=== PATIENT | male | born 1960 | race Caucasian/White ===

== ENCOUNTER 2017-09-08 00:46 | Observation (INO) | payer BC, OTHER ==
[~2017-09-08] VITALS: Ht 180.3 cm; Wt 170.2 kg
[2017-09-08] VITALS (13 sets, daily range): BP systolic 118–160; BP diastolic 64–102
[~2017-09-08 00:46] MED LIST: ASPI-1471 PO; CEPH250C37 PO; CHOL10005 PO; FUR40 PO; GLIP-152 PO; HYDR-4309 PO; METF-411 PO; OXY10 PO; OXYC-689 PO; OXYC-865 PO; PER PO; RIV10 PO; [UNRECOGNIZED DRUG - CODE] PO; [UNRECOGNIZED DRUG - REMARK]
[2017-09-08] MEDS ORDERED: fentaNYL CITR 250 MCG/5 ML AMP ONE (07:49)
[2017-09-08] MEDS ORDERED: ONDANSETRON 4 MG/2 ML VIAL ONE (07:50)
[2017-09-08] MEDS ORDERED: SUGAMMADEX SOD 500 MG/5 ML SDV ONE (07:50)
[2017-09-08] MEDS ORDERED: DEXAMETHASONE SOD 4 MG/ML VIAL ONE (07:50)
[2017-09-08] MEDS ORDERED: LIDOCAINE MPF 1% 5 ML VIAL ONE (07:50)
[2017-09-08] MEDS ORDERED: PROPOFOL EMUL(*) 10MG/ML 20 ML 40 ML ONE (07:50)
[2017-09-08 08:59] LABS: INR 0.96
[2017-09-08] MEDS ORDERED: ROPIVACAINE 0.2% 20 ML VIAL ONE (09:51)
[2017-09-08] MEDS ORDERED: KETAMINE HCL 200 MG/20 ML MDV ONE (10:47)
[2017-09-08] MEDS ORDERED: LIDO/EPI 2% MPF 1:200,000 20ML INFIL ONE (10:50)
[2017-09-08] MEDS ORDERED: ceFAZolin 1 GM VIAL ONE (11:28)
[2017-09-08] MEDS ORDERED: ePHEDrine 25 MG/5 ML DISP.SYR IVP ONE (11:35)
[2017-09-08] MEDS ORDERED: MIDAZOLAM 2 MG/2 ML VIAL IVP PRN (12:30)
[2017-09-08] MEDS ORDERED: PREGABALIN 150 MG CAPSULE PO ONE (12:30)
[2017-09-08] MEDS ORDERED: LIDOCAINE/SOD BICARB 8.4% SYR ID ONE (12:30)
[2017-09-08] MEDS ORDERED: CELECOXIB 200 MG CAP PO ONE (12:30)
[2017-09-08] MEDS ORDERED: FAMOTIDINE 20 MG TAB PO ONE (12:30)
[2017-09-08] MEDS ORDERED: ACETAMINOPHEN 500 MG TAB PO ONE (12:30)
[2017-09-08] MEDS ORDERED: ceFAZolin(*) 2GM/D5W 50ML 50 ML IVPB ONE (12:30)
[2017-09-08] MEDS ORDERED: BACITRACIN 50000 UNIT/VIAL 100,000 UNIT in NS 0.9% 3000 ML IRRIGATION BAG 3,000 ML IR ONE (12:30)
[2017-09-08] MEDS ORDERED: NORMOSOL R SOLN(*) 1000 ML BAG 1,000 ML IV PRN (12:30)
[2017-09-08] MEDS ORDERED: fentaNYL CITR 100 MCG/2 ML AMP ONE ×2 (13:34→13:52)
[2017-09-08] MEDS ORDERED: ZOLPIDEM TARTRATE 5 MG TAB PO PRN (13:45)
[2017-09-08] MEDS ORDERED: BISACODYL 10 MG SUPP PR PRN (13:45)
[2017-09-08] MEDS ORDERED: LR 1000 ML BAG 1000 ML IV PRN (13:45)
[2017-09-08] MEDS ORDERED: HYDROmorphone HCL 2 MG/ML SDV IVP PRN (13:45)
[2017-09-08] MEDS ORDERED: diphenhydrAMINE 50 MG/ML VIAL IVP PRN (13:45)
[2017-09-08] MEDS ORDERED: PROMETHAZINE 25 MG/ML 1 ML AMP IVP PRN (13:45)
[2017-09-08] MEDS ORDERED: FLUSH 10 ML SYR IVP PRN (13:45)
[2017-09-08] MEDS ORDERED: MAGNESIUM HYDROXIDE* 30ML UDCP PO PRN (13:45)
[2017-09-08] MEDS ORDERED: diphenhydrAMINE 25 MG CAP PO PRN (13:45)
[2017-09-08] MEDS ORDERED: MAGNESIUM CITRATE 300 ML BTL PO PRN (13:45)
--- NOTE | 2017-09-08 14:24 | RADIOLOGY IMAGING REPORT ---
FACILITY: [facility] PATIENT NAME: Shawn Murcia : 1960 MR: [id number] V: [id number] EXAM DATE: ORDERING PHYSICIAN: SERGIO TRACY TECHNOLOGIST: Location: [facility] Patient: Shawn Murcia : 1960 Visit/Account:[id number] Date of Sevice: 09/08/2017 Exam type: SHOULDER 1 VIEW RIGHT History: POST OP R TSA Comparison: None. Findings: There is a right shoulder arthroplasty that appears in good anatomic alignment on this single AP view . Soft tissue gas is seen adjacent to this postoperative shoulder IMPRESSION: 1. As above Report Dictated By: Ruby Osei MD at 09/08/2017 2:20 PM Report E-Signed By: Ruby Osei MD at 09/08/2017 2:20 PM WSN:[id number]
[2017-09-08] MEDS: ONDANSETRON 4 MG/2 ML VIAL IVP PRN (15:55)
--- NOTE | 2017-09-08 16:02 | Hospitalist Consultation ---
History of Present Illness Requesting Physician Dr. Kinney Reason for Consult Medication Management Chief Complaint s/p right shoulder replacement History of Present Illness He was admitted s/p right shoulder replacement. It is reported the surgery went well and without complication. History Problems: (1) Hypertension Status: Chronic (2) Type 2 diabetes mellitus Status: Chronic (3) Sleep apnea, obstructive Status: Chronic Home Meds Reported Medications Cholecalciferol (Vitamin D3) (VITAMIN D3) 1,000 Unit Tablet, 2 TAB PO DAILY, TAB 09/01/17 Metformin Hcl (METFORMIN HCL) 500 Mg Tablet, 1 TAB PO BID, TAB 09/01/17 Glipizide (GLIPIZIDE) 5 Mg Tablet, 5 MG PO BID 09/01/17 Aspirin (ASPIR 81) 81 Mg Tablet.dr, 81 MG PO QDAY, TAB 02/09/15 Furosemide (Lasix) 40 Mg Tab, 40 MG PO DAILY 04/08/12 Amlodipine/Valsartan (EXFORGE 10-320 MG TABLET) 1 Each Tablet, 1 EACH PO QAM 04/08/12 Discontinued Reported Medications Hydrocodone Bit/Acetaminophen (NORCO 5-325 TABLET) 1 Each Tablet, 1-2 EACH PO Q4 -6H Y for PAIN, #45 TAB 12/04/15 Allergies: Coded Allergies: acetaminophen (Verified Allergy, Severe, SEVERE N/V AND GENERALIZED WEAKNESS., 09/01/17) hydrocodone (Verified Allergy, Severe, SEVERE N/V AND GENERALIZED WEAKNESS., 09/01/17) morphine (Verified Allergy, Intermediate, HIVES AND FLUSHING, 09/01/17) venom-honey bee (Verified Allergy, Unknown, 09/01/17) Hx Smoking: No Smoking Status: Never Smoker Exposure to Second Hand Smoke?: No Caffeine Intake: Coffee Caffeine/Cups Per Day: 3-4/DAY Hx Alcohol Use: Yes Hx Substance Use Disorder: No Social Drug Use: Never History of IV Drug Use: No Review of Systems All Systems Reviewed/Normal: Yes, Except as Noted Exam Vital Signs Vital Signs Date Time Temp Pulse Resp B/P (MAP) Pulse Ox O2 Delivery O2 Flow Rate FiO2 09/08/17 15:22 97.9 87 16 160/92 (114) 93 Nasal Cannula 2.0 General Appearance: Alert, Awake, No Acute Distress, Afebrile Neuro: No Gross deficits Cardiovascular: Regular Rate and Rhythm Respiratory: No Respiratory Distress, Clear to Auscultation GI: Abd Soft and Non-Tender Psych: Alert & Oriented X3, Appropriate Mood & Affect Assessment and Plan Problems: (1) Status post replacement of right shoulder joint Status: Acute Assessment & Plan: Followed by Dr. Kinney (2) Hypertension Status: Chronic Assessment & Plan: He is on chronic treatment with Amlodipine, Valsartan, and Lasix. Amlodipine and Valsartan were restarted with hold parameters. Lasix has been held at this time. (3) Type 2 diabetes mellitus Status: Chronic Assessment & Plan: He is on chronic treatment with Metformin and Glipizide. He will be placed on ADA diet, AC/ HS sugar checks and SS insulin level #2. We will restart his Metformin and Glipizide tomorrow. (4) Sleep apnea, obstructive Status: Chronic Assessment & Plan: He uses a CPAP chronically at home. He did bring his CPAP to use tonight. Venous Thromboembolism Antithrombotics Is Pt On Any Antithrombotics?: No NICOLE LOUIE September 08, 2017 16:02
[2017-09-08] MEDS: INSULIN HUM LISPRO 100 UN/ML 3 ML VIAL SUBQ PRN ×2 (17:14→21:10)
[2017-09-08] MEDS: ceFAZolin(*) 2GM/D5W 50ML 50 ML IVPB SCH (19:36)
--- NOTE | 2017-09-08 21:26 | OPERATIVE REPORT 1 ---
EVENT DATE: September 08, 2017 SURGEON: Golden Kinney MD ANESTHESIOLOGIST: Suraj Gee MD ANESTHESIA: General LMA anesthesia. BARGE WORKER: Juan Manuel Tomas PA-C PREOPERATIVE DIAGNOSIS Right shoulder osteoarthritis. POSTOPERATIVE DIAGNOSIS Right shoulder osteoarthritis. PROCEDURE PERFORMED Right total shoulder arthroplasty. FINDINGS The patient had a significant amount of arthritic changes associated with his shoulder. ESTIMATED BLOOD LOSS About 200 mL. DRAINS None. COMPLICATIONS None. TOURNIQUET TIME Not applicable. IMPLANTS USED [employer] size 52 [place] Peg Glenoid with an 8 stem, 8 body, and 56 x 18 eccentric head with the eccentricity pointing superior and posterior. SPECIMENS None. INDICATIONS AND HISTORY This patient is a 57-year-old male who presented to my clinic for evaluation of right shoulder pain and irritation going on for some time. He continued to have pain despite conservative management, and so therefore, he wanted to go ahead with a right total shoulder arthroplasty after multiple injections, and they did not give him complete relief associated with them. So therefore, we went over the risks and benefits associated with a total shoulder arthroplasty, and informed consent was obtained at the last clinic visit. DESCRIPTION OF PROCEDURE As the patient was brought in the operating room, he and the procedure were both verified. He was placed supine on the operating table and induced and intubated by Anesthesia. He was then put in a beach chair position, and the right upper extremity was then prepped and draped in the usual fashion. A timeout was observed verifying the correct patient and procedure. The standard incision was made over the deltopectoral interval after anesthetizing the skin with lidocaine with epinephrine. We took it through the skin and subcutaneous tissue, and then, I was able to identify the deltopectoral interval with the cephalic vein in this area. I then retracted the cephalic vein over to the lateral side and then went through the deltopectoral interval until I got down to the clavipectoral fascia. This is when I then performed a biceps tenodesis in this area with a heavy Ethibond. I then took down the subscapularis and then was able to tag this for later repair. This was when I entered the joint, and I was able to dislocate the joint without any major difficulty. I then drilled the superior hole into the superior aspect of the humeral head and then broached up from a 6 mm to an 8 mm broach. I left that in and then cut it according to the standard [employer] system. Once I cut the humeral head, I then removed all the osteophytes and then turned attention to the glenoid where I gained good exposure with retractors all the way around the glenoid. I then cut the rest of the labrum off and also removed the base of the biceps tendon. I then was able to get at the central portion of the glenoid itself and then was able to drill a central peg through this area and then ream to the 52 mm reamer. Once I was able to put in 52 mm reamer and then get it concentrically reamed, I then put the 52 danuta disk back in this area. It had good concentricity, and so therefore, I then drilled the three secondary derotational holes for cementation. I then put in the trial and then followed it up with the regular prosthesis after putting some bony fragments on the [place] Peg, then cemented in the three peripheral holes, and then allowed the cement to harden. I held it in place. I was then able to irrigate with copious amounts of saline and turn attention back to the humerus where I was able to then put in the 8 Brosteotome, followed by trial of the 8 stem. This was found to be best with an eccentric 56 x 18 head with the eccentricity pointed to the superoposterior aspect. Once I did this, I had good movement associated with the shoulder. There was good tension associated with it all throughout, and it had excellent stability, and so these were the final prostheses chosen. I then was able to bone graft up the humerus and then put in the six drill holes with the six sutures to repair the subscapularis, put in the prosthesis, repair the subscapularis, and then irrigate it again with copious amounts of saline. I then closed the deltopectoral interval with 0 Stratafix, then followed by 2-0 Stratafix in the subcutaneous tissue, and then a 4-0 Monocryl in the skin with the ends buried. The wound was then dressed with Steri-Strips , gauze 4 x 4's, and a soft dressing. Then, the patient was awakened, extubated , and transferred to the PACU in stable condition. He will be admitted overnight. DERIAN
[2017-09-09] MEDS: ceFAZolin(*) 2GM/D5W 50ML 50 ML IVPB SCH ×2 (04:36→11:11)
[2017-09-09 04:41] VITALS: BP 133/84
[2017-09-09 07:15] VITALS: BP 141/82
[2017-09-09] MEDS ORDERED: OXYC-865 PO ×2 (07:29→09:24)
[2017-09-09] MEDS: INSULIN HUM LISPRO 100 UN/ML 3 ML VIAL SUBQ PRN (08:57)
[2017-09-09] MEDS ORDERED: metFORMIN HCL 500 MG TAB PO SCH (09:00)
[2017-09-09] MEDS ORDERED: VALSARTAN 80 MG TAB PO SCH (09:00)
[2017-09-09] MEDS ORDERED: glipiZIDE 5 MG TAB PO SCH (09:00)
[2017-09-09] MEDS ORDERED: amLODIPine BESYL(*) 5 MG TAB PO SCH (09:00)
--- NOTE | 2017-09-09 09:11 | Hospitalist Progress Note ---
Subjective Progress Notes Subjective He has no complaints this morning. Patient Complains of: Cardiovascular: No: Chest Pain Respiratory: No: Shortness of Breath Physical Exam Vital Signs Date Time Temp Pulse Resp B/P (MAP) Pulse Ox O2 Delivery O2 Flow Rate FiO2 09/09/17 07:15 97.9 66 16 141/82 (101) 94 Nasal Cannula 3.5 Intake and Output 09/10/17 07:00 # Voids 1 General Appearance: Alert, Awake, No Acute Distress, Afebrile Neuro: No Gross deficits Cardiovascular: Regular Rate and Rhythm Respiratory: No Respiratory Distress, Clear to Auscultation GI: Soft and Non-Tender Psych: Alert & Oriented X3, Appropriate Mood & Affect Result Diagram: 09/09/17 0540 Assessment and Plan Problems: (1) Status post replacement of right shoulder joint Status: Acute Assessment & Plan: Followed by Dr. Kinney (2) Hypertension Status: Chronic Assessment & Plan: He is on chronic treatment with Amlodipine, Valsartan, and Lasix. (3) Type 2 diabetes mellitus Status: Chronic Assessment & Plan: He is on chronic treatment with Metformin and Glipizide. (4) Sleep apnea, obstructive Status: Chronic Assessment & Plan: He uses a CPAP chronically at home. Exam Sepsis Risk: No Definite Risk NICOLE LOUIE September 09, 2017 09:11
[2017-09-09] MEDS: ONDANSETRON 4 MG/2 ML VIAL IVP PRN (11:05)
[2017-09-09] MEDS ORDERED: ONDA4TAB PO (11:07)
[2017-09-09 12:19] VITALS: Ht 180.3 cm; Wt 170.2 kg
== END 2017-09-09 07:25 | disposition home or self-care (01) ==
LOC: OR 00:46 → MED 15:15
PROVIDERS: ADMIT Orthopaedic Surgery; ATTEND Orthopaedic Surgery
DX: M19.011 Primary osteoarthritis, right shoulder (principal); E11.9 Type 2 diabetes mellitus without complications; I10 Essential (primary) hypertension; Z79.82 Long term (current) use of aspirin; G47.33 Obstructive sleep apnea (adult) (pediatric); Z79.899 Other long term (current) drug therapy
CPT/HCPCS: 23472; 36415; 36416; 73020; 82948; 85014; 85018; 85610; 86850; 86900; 86901; 96372; 97165; 97535; A4565; C1713; C1776; G0378; J0690; J1100; J1815; J2001; J2250; J2405; J2704; J2795; J3010; J3490